=== PATIENT | female | born 1945 | race Two or more races ===

== ENCOUNTER 2018-10-24 22:03 | Emergency (ER) | payer OTHER ==
[~2018-10-24] VITALS: Ht 170.2 cm; Wt 98.4 kg
[~2018-10-24 22:03] MED LIST: ASA81 MG PO; HYDROCHLOROTHIA25 MG PO; SYNTHROID88 MCG PO; TENORMIN50 MG PO
== END 2018-10-24 22:28 | disposition home or self-care (01) ==
LOC: ER 22:03
DX: T16.1XXA Foreign body in right ear, initial encounter (principal); W45.8XXA Other foreign body or object entering through skin, initial encounter; Y93.89 Activity, other specified; Y92.89 Other specified places as the place of occurrence of the external cause; Y99.8 Other external cause status

== ENCOUNTER 2025-02-19 08:18 | Outpatient (CLI) | payer OTHER | END 2025-02-19 08:19 | disposition home or self-care (01) | LOC: NUCLEAR 08:18 | PROVIDERS: ATTEND Family Medicine | DX: Z13.820 Encounter for screening for osteoporosis (principal); M81.0 Age-related osteoporosis without current pathological fracture ==